=== PATIENT | female | born 1950 | race Caucasian/White ===

== ENCOUNTER 2018-02-04 18:28 | Inpatient (IN) | payer MEDICARE ==
[~2018-02-04] VITALS: Ht 154.9 cm; Wt 85.2 kg
[2018-02-04] MEDS ORDERED: SODIUM CHLORIDE 0.9% 1,000 ML IV ONE (18:51)
[2018-02-04] MEDS ORDERED: HYDROmorphone 1 MG/ML, 1ML IV PRN (19:00)
[2018-02-04] MEDS ORDERED: ONDANSETRON ODT 4 MG PO ONE (19:00)
[2018-02-04] MEDS ORDERED: SODIUM CHLORIDE FLUSH 10ML SYR IVF ONE ×2 (19:00→22:00)
[2018-02-04 19:40] LABS: INTERNATIONAL NORMALIZED RATIO 1.12 (0.93-1.1); PROTHROMBIN TIME 11.6 Seconds (9.6-11.5)
[2018-02-04 19:41] LABS: ALBUMIN 2.4 g/dL (3.4-5.0); ANION GAP 7 mmol/L (5-15); CALCIUM 9.6 mg/dL (8.5-10.1); CHLORIDE 106 mmol/L (98-107)
[2018-02-04 19:47] LABS: ALANINE AMINOTRANSFERASE 24 U/L (12-78); ALKALINE PHOSPHATASE 113 U/L (45-117); CREATININE 0.59 mg/dL (0.55-1.02); TOTAL PROTEIN 6.6 g/dL (6.4-8.2); TROPONIN I < 0.015 ng/mL (0.000-0.045)
[2018-02-04 19:49] LABS: BILIRUBIN,TOTAL 2.9 mg/dL (0.2-1.0)
[2018-02-04] MEDS ORDERED: OMNIPAQUE 350 MG/ML, 100ML BOTTLE ONE (20:37)
[2018-02-04] MEDS ORDERED: CEFTRIAXONE PMX 1GM/50ML 50 ML IVPB ONE (21:00)
[2018-02-04] MEDS ORDERED: AZITHROMYCIN 500 MG in SODIUM CHLORIDE 0.9% 250 ML IVPB ONE (21:00)
[2018-02-04] MEDS ORDERED: CEFTRIAXONE PMX 1GM/50ML 50 ML ONE (21:14)
[2018-02-04] MEDS ORDERED: HYDROmorphone 2 MG/ML, 1ML ONE (21:38)
[2018-02-04 21:53] LABS: MEAN CORPUSCULAR HEMOGLOBIN 27.5 pg (27.0-34.8); MEAN CORPUSCULAR HGB CONC 33.4 g/dL (32.4-35.8); MEAN CORPUSCULAR VOLUME 82.2 fL (80-100); MEAN PLATELET VOLUME 7.7 fL (7.4-10.4); PLATELET COUNT 60 x10^3/uL (130-400); RED BLOOD COUNT 3.37 x10^6/uL (3.82-5.3); RED CELL DISTRIBUTION WIDTH 18.3 % (9.6-15.2)
[2018-02-04 21:55] LABS: MD YES
[2018-02-04 21:58] LABS: CULTURE INDICATED? YES; MICROSCOPIC INDICATED
[2018-02-04] MEDS ORDERED: PIPERACILLIN/TAZO/PMX 3.375GM 50 ML IV ONE (22:00)
[2018-02-04] MEDS ORDERED: SODIUM CHLORIDE 0.9% 1,000ML IVBOLUS ONE ×2 (22:00→22:30)
[2018-02-04 22:04] LABS: SEGS% (MANUAL) 24 % (42-75)
[2018-02-04 22:05] LABS: LYMPH#(MANUAL) 0.22 x10^3/uL (1-3.4); LYMPHS% (MANUAL) 72 % (22-44); MONOS#(MANUAL) 0.01 x10^3/uL (0.3-2.7); MONOS% (MANUAL) 4 % (2-9); SEG#(MANUAL) 0.08 x10^3/uL (1.8-6.8)
[2018-02-04 22:07] LABS: <PLATELET ESTIMATE> DECREASED; HYPOCHROMIA 1+; OVALOCYTES 1+
[2018-02-04 22:08] LABS: ANISOCYTOSIS 1+; SMALL PLATELETS 1+
[2018-02-04] MEDS ORDERED: POTA20TA89 PO (22:22)
[2018-02-04] MEDS ORDERED: MORP-52 PO (22:22)
[2018-02-04] MEDS ORDERED: OXYC10TA6 PO (22:22)
[2018-02-04] MEDS ORDERED: LACT10SO28 PO (22:22)
[2018-02-04] MEDS ORDERED: LEVE100020 PO (22:22)
[2018-02-04] MEDS ORDERED: PIPERACILLIN/TAZO/PMX 3.375GM 50 ML ONE (23:01)
[2018-02-04] MEDS ORDERED: NS + 20MEQ KCL 1,000 ML IV SCH (23:23)
[2018-02-04] MEDS ORDERED: VANCOMYCIN PER PHARMACY MC PRN (23:30)
[2018-02-04] MEDS ORDERED: ACETAMINOPHEN 325 MG TABLET PO PRN (23:30)
[2018-02-04] MEDS: FAMOTIDINE 20 MG TABLET PO SCH (23:30)
[2018-02-04] MEDS ORDERED: POLYETHYLENE GLYCOL 17 GM PACKET PO PRN (23:30)
[2018-02-04] MEDS ORDERED: ONDANSETRON 2MG/ML, 2ML IVPush PRN (23:30)
[2018-02-04] MEDS ORDERED: OXYcodone IR 5MG TABLET PO PRN (23:30)
[2018-02-04] MEDS ORDERED: DOCUSATE 100 MG CAPSULE PO PRN (23:30)
[2018-02-04 23:44] VITALS: BP 164/78
[2018-02-04] MEDS ORDERED: PHARMACOKINETIC MONITORING MC PRN (23:45)
[2018-02-04] MEDS ORDERED: PHARMACOKINETIC CONSULTATION MC ONE (23:45)
[2018-02-05] MEDS: PIPERACILLIN/TAZO/PMX 3.375GM 50 ML IV SCH ×4 (00:33→18:36)
[2018-02-05] MEDS: VANCOMYCIN 1,200 MG in SODIUM CHLORIDE 0.9% 250 ML IV SCH (01:55)
[2018-02-05 01:57] VITALS: BP 126/64
[2018-02-05] MEDS: HYDROmorphone 2 MG/ML, 1ML IVPush PRN ×5 (03:51→23:16)
[2018-02-05 03:53] VITALS: BP 126/65
[2018-02-05 06:09] LABS: ALANINE AMINOTRANSFERASE 24 U/L (12-78); ALBUMIN 1.9 g/dL (3.4-5.0); ANION GAP 10 mmol/L (5-15); CALCIUM 8.3 mg/dL (8.5-10.1); CHLORIDE 113 mmol/L (98-107); CREATININE 0.69 mg/dL (0.55-1.02)
[2018-02-05 06:11] LABS: ALKALINE PHOSPHATASE 101 U/L (45-117); TOTAL PROTEIN 5.4 g/dL (6.4-8.2)
[2018-02-05 06:12] LABS: MEAN CORPUSCULAR HEMOGLOBIN 28.5 pg (27.0-34.8); MEAN CORPUSCULAR HGB CONC 34.6 g/dL (32.4-35.8); MEAN CORPUSCULAR VOLUME 82.4 fL (80-100); RED BLOOD COUNT 3.25 x10^6/uL (3.82-5.3); RED CELL DISTRIBUTION WIDTH 18.8 % (9.6-15.2)
[2018-02-05 06:54] LABS: MD YES; MEAN PLATELET VOLUME 8.3 fL (7.4-10.4); PLATELET COUNT 53 x10^3/uL (130-400)
[2018-02-05 07:11] LABS: NRBC % (MANUAL) 4 % (0-1); SEG#(MANUAL) 0.08 x10^3/uL (1.8-6.8); SEGS% (MANUAL) 20 % (42-75)
[2018-02-05 07:12] LABS: LYMPH#(MANUAL) 0.25 x10^3/uL (1-3.4); LYMPHS% (MANUAL) 62 % (22-44); MONOS#(MANUAL) 0.07 x10^3/uL (0.3-2.7); MONOS% (MANUAL) 18 % (2-9)
[2018-02-05 07:14] LABS: <PLATELET ESTIMATE> DECREASED; ANISOCYTOSIS 1+
[2018-02-05 07:15] LABS: <PLT MORPHOLOGY> NORMAL PLT MORPH
[2018-02-05 08:06] VITALS: BP 136/72
[2018-02-05] MEDS ORDERED: LACTULOSE 10 GM/15 ML UDC PO SCH (09:00)
[2018-02-05] MEDS: FAMOTIDINE 20 MG TABLET PO SCH ×2 (09:00→20:09)
[2018-02-05] MEDS: LEVETIRACETAM 500 MG TABLET PO SCH ×2 (09:00→20:09)
[2018-02-05] MEDS: D5%-0.9% NACL+KCL 20MEQ 1,000 ML IV SCH (13:27)
[2018-02-05 14:15] VITALS: BP 121/57
[2018-02-05 20:00] VITALS: BP 132/67
[2018-02-05] MEDS: maalox/diphenh/lido/sucralfate 5 ML PO PRN (20:29)
[2018-02-06] MEDS: D5%-0.9% NACL+KCL 20MEQ 1,000 ML IV SCH (00:26)
[2018-02-06] MEDS: PIPERACILLIN/TAZO/PMX 3.375GM 50 ML IV SCH ×3 (00:26→12:13)
[2018-02-06 02:33] VITALS: BP 147/68
[2018-02-06] MEDS: HYDROmorphone 2 MG/ML, 1ML IVPush PRN ×6 (04:20→22:10)
[2018-02-06] MEDS ORDERED: MAGNESIUM SULFATE PMX 2GM/50ML 50 ML IV ONE (07:00)
[2018-02-06 08:30] VITALS: BP 125/53
[2018-02-06] MEDS: NYSTATIN 500,000 UNITS/5 ML UDC PO SCH ×4 (08:30→22:55)
[2018-02-06] MEDS: FAMOTIDINE 20 MG TABLET PO SCH (08:30)
[2018-02-06] MEDS: MAGNESIUM CHLORIDE 64 MG TABLET.DR PO SCH ×2 (08:30→22:55)
[2018-02-06 08:33] LABS: ANION GAP 9 mmol/L (5-15); CHLORIDE 114 mmol/L (98-107); CREATININE 0.57 mg/dL (0.55-1.02)
[2018-02-06 09:11] LABS: MEAN CORPUSCULAR HEMOGLOBIN 27.9 pg (27.0-34.8); MEAN CORPUSCULAR HGB CONC 33.4 g/dL (32.4-35.8); MEAN CORPUSCULAR VOLUME 83.5 fL (80-100); MEAN PLATELET VOLUME 8.8 fL (7.4-10.4); PLATELET COUNT 61 x10^3/uL (130-400); RED CELL DISTRIBUTION WIDTH 19.3 % (9.6-15.2)
[2018-02-06 09:13] LABS: MD YES
[2018-02-06 10:06] LABS: BASOPHILS % (AUTO) 0 % (0-1); EOSINOPHILS # (AUTO) 0.01 x10^3/uL (0-0.4); EOSINOPHILS % (AUTO) 1 % (1-7); LYMPHOCYTES # (AUTO) 0.25 x10^3/uL (1-3.4); LYMPHOCYTES % (AUTO) 68 % (22-44); MONOCYTES # (AUTO) 0.09 x10^3/uL (0.2-0.8); MONOCYTES % (AUTO) 23 % (2-9); NEUTROPHILS # (AUTO) 0.03 x10^3/uL (1.8-6.8); NEUTROPHILS % (AUTO) 7 % (42-75)
[2018-02-06] MEDS: LACTULOSE 10 GM/15 ML UDC PO SCH ×4 (12:08→22:56)
[2018-02-06] MEDS: LEVETIRACETAM 500 MG TABLET PO SCH (12:14)
[2018-02-06] MEDS: VANCOMYCIN 1,200 MG in SODIUM CHLORIDE 0.9% 250 ML IV SCH (12:57)
[2018-02-06] MEDS ORDERED: LACTULOSE 3.3 GM/5 ML ORAL.SOL RC ONE (13:00)
[2018-02-06 14:24] VITALS: BP 133/74
[2018-02-06] MEDS: LEVETIRACETAM 1,000 MG in SODIUM CHLORIDE 0.9% 100 ML IV SCH (15:07)
[2018-02-06] MEDS: D5%-0.9% NACL 1,000 ML IV SCH (15:17)
[2018-02-06] MEDS: maalox/diphenh/lido/sucralfate 5 ML PO PRN (15:20)
[2018-02-06] MEDS: MEROPENEM 2 GM in SODIUM CHLORIDE 0.9% 100 ML IV SCH ×2 (15:26→23:45)
[2018-02-06 18:55] VITALS: BP 113/66
[2018-02-06] MEDS ORDERED: TBO-FILGRASTIM 480 MCG/0.8 ML SQ ONE ×2 (19:30→23:45)
[2018-02-06] MEDS ORDERED: maalox/diphenh/lido/sucralfate 5 ML PO PRN (19:30)
[2018-02-06] MEDS ORDERED: LEVETIRACETAM 1,000 MG in SODIUM CHLORIDE 0.9% 100 ML IV SCH (21:00)
[2018-02-06] MEDS: FAMOTIDINE 20 MG/2 ML IVPush SCH (22:56)
[2018-02-07 00:35] VITALS: BP 145/71
[2018-02-07] MEDS: HYDROmorphone 2 MG/ML, 1ML IVPush PRN ×7 (01:33→23:45)
[2018-02-07] MEDS: LEVETIRACETAM 1,000 MG in SODIUM CHLORIDE 0.9% 100 ML IV SCH ×2 (03:28→17:28)
[2018-02-07 05:24] LABS: CHLORIDE 114 mmol/L (98-107)
[2018-02-07 05:33] LABS: MEAN CORPUSCULAR HEMOGLOBIN 28.1 pg (27.0-34.8); MEAN CORPUSCULAR HGB CONC 33.6 g/dL (32.4-35.8); MEAN CORPUSCULAR VOLUME 83.8 fL (80-100); MEAN PLATELET VOLUME 8.4 fL (7.4-10.4); PLATELET COUNT 67 x10^3/uL (130-400); RED BLOOD COUNT 2.77 x10^6/uL (3.82-5.3); RED CELL DISTRIBUTION WIDTH 18.5 % (9.6-15.2)
[2018-02-07 05:59] LABS: ALANINE AMINOTRANSFERASE 36 U/L (12-78); ALBUMIN 1.6 g/dL (3.4-5.0); ALKALINE PHOSPHATASE 112 U/L (45-117); ANION GAP 9 mmol/L (5-15); BILIRUBIN,TOTAL 1.8 mg/dL (0.2-1.0); CALCIUM 8.2 mg/dL (8.5-10.1); CREATININE 0.49 mg/dL (0.55-1.02)
[2018-02-07 06:22] LABS: MD YES
[2018-02-07] MEDS: MEROPENEM 2 GM in SODIUM CHLORIDE 0.9% 100 ML IV SCH (06:22)
[2018-02-07] MEDS: D5%-0.9% NACL 1,000 ML IV SCH (06:23)
[2018-02-07] MEDS: NYSTATIN 500,000 UNITS/5 ML UDC PO SCH ×4 (06:23→22:16)
[2018-02-07 07:08] LABS: BAND#(MANUAL) 0.03 x10^3/uL; BANDS%(MANUAL) 4 % (0-7); LYMPH#(MANUAL) 0.43 x10^3/uL (1-3.4); LYMPHS% (MANUAL) 54 % (22-44); MONOS% (MANUAL) 38 % (2-9); REACTIVE LYMPHS # (MANUAL) 0.03 x10^3/uL (0-0); REACTIVE LYMPHS % (MANUAL) 4 % (0-0)
[2018-02-07 07:09] LABS: <PLT MORPHOLOGY> NORMAL PLT MORPH; ANISOCYTOSIS 1+
[2018-02-07 08:05] VITALS: BP 124/63
[2018-02-07] MEDS: MAGNESIUM CHLORIDE 64 MG TABLET.DR PO SCH ×2 (09:19→20:00)
[2018-02-07] MEDS: FAMOTIDINE 20 MG/2 ML IVPush SCH ×2 (09:34→22:16)
[2018-02-07] MEDS: LACTULOSE 10 GM/15 ML UDC PO SCH ×3 (09:45→22:16)
[2018-02-07] MEDS ORDERED: FENTANYL REMOVE PATCH NOTE XX SCH (10:30)
[2018-02-07] MEDS ORDERED: POTASSIUM CHLORIDE 40 MEQ in SODIUM CHLORIDE 0.9% 500 ML IV ONE (10:30)
[2018-02-07] MEDS ORDERED: [UNRECOGNIZED DRUG - REMARK] XX PRN (11:00)
[2018-02-07] MEDS: CEFTAZIDIME 2,000 MG in SODIUM CHLORIDE 0.9% 50 ML IV SCH ×2 (11:50→20:27)
[2018-02-07] MEDS: D5%-0.45NACL+KCL 20MEQ 1,000 ML IV SCH (11:50)
[2018-02-07] MEDS: FENTANYL 25 MCG PATCH TD SCH (11:53)
[2018-02-07 13:50] VITALS: BP 144/67
[2018-02-07] MEDS ORDERED: TBO-FILGRASTIM 480 MCG/0.8 ML SQ SCH (18:00)
[2018-02-07 20:14] VITALS: BP 150/71
[2018-02-08] MEDS: VANCOMYCIN 1,200 MG in SODIUM CHLORIDE 0.9% 250 ML IV SCH (00:34)
[2018-02-08 03:55] VITALS: BP 148/73
[2018-02-08] MEDS: CEFTAZIDIME 2,000 MG in SODIUM CHLORIDE 0.9% 50 ML IV SCH ×4 (04:00→22:39)
[2018-02-08] MEDS: D5%-0.45NACL+KCL 20MEQ 1,000 ML IV SCH (05:00)
[2018-02-08 05:15] LABS: ANION GAP 8 mmol/L (5-15); CALCIUM 8.1 mg/dL (8.5-10.1); CHLORIDE 116 mmol/L (98-107)
[2018-02-08 05:16] LABS: CREATININE 0.54 mg/dL (0.55-1.02)
[2018-02-08] MEDS: NYSTATIN 500,000 UNITS/5 ML UDC PO SCH ×4 (05:52→20:41)
[2018-02-08] MEDS: HYDROmorphone 2 MG/ML, 1ML IVPush PRN ×3 (05:52→22:49)
[2018-02-08] MEDS: LEVETIRACETAM 1,000 MG in SODIUM CHLORIDE 0.9% 100 ML IV SCH ×2 (05:52→20:29)
[2018-02-08 06:24] LABS: MD YES
[2018-02-08 06:25] LABS: MEAN CORPUSCULAR HEMOGLOBIN 27.4 pg (27.0-34.8); MEAN CORPUSCULAR HGB CONC 32.5 g/dL (32.4-35.8); MEAN CORPUSCULAR VOLUME 84.4 fL (80-100); MEAN PLATELET VOLUME 8.3 fL (7.4-10.4); PLATELET COUNT 61 x10^3/uL (130-400); RED BLOOD COUNT 2.83 x10^6/uL (3.82-5.3); RED CELL DISTRIBUTION WIDTH 18.8 % (9.6-15.2)
[2018-02-08 06:31] LABS: BAND#(MANUAL) 0.55 x10^3/uL; BANDS%(MANUAL) 14 % (0-7); EOS#(MANUAL) 0.04 x10^3/uL (0.0-0.4); EOS% (MANUAL) 1 % (1-7); LYMPH#(MANUAL) 0.55 x10^3/uL (1-3.4); LYMPHS% (MANUAL) 14 % (22-44); METAMYELOCYTES# (MANUAL) 0.23 x10^3/uL (0-0); METAMYELOCYTES% (MANUAL) 6 % (0-1); MONOS#(MANUAL) 0.78 x10^3/uL (0.3-2.7); MONOS% (MANUAL) 20 % (2-9); MYELOCYTES# (MANUAL) 0.31 x10^3/uL (0-0); MYELOCYTES% (MANUAL) 8 % (0-0); NRBC % (MANUAL) 3 % (0-1); PROGRANULOCYTES# (MANUAL) 0.04 x10^3/uL (0-0); PROGRANULOCYTES% (MANUAL) 1 % (0-0); SEGS% (MANUAL) 36 % (42-75)
[2018-02-08 06:37] LABS: <PLATELET ESTIMATE> DECREASED; ANISOCYTOSIS 1+
[2018-02-08 06:38] LABS: <PLT MORPHOLOGY> NORMAL PLT MORPH; TOXIC GRAN 1+
[2018-02-08 06:40] LABS: POLYCHROMASIA 1+
[2018-02-08 06:47] LABS: <PLATELET ESTIMATE> DECREASED
[2018-02-08 07:17] VITALS: BP 103/61
[2018-02-08] MEDS ORDERED: POTASSIUM PHOSPHATE 44 MEQ in SODIUM CHLORIDE 0.9% 500 ML IV ONE (08:30)
[2018-02-08] MEDS: LACTULOSE 10 GM/15 ML UDC PO SCH ×3 (09:00→20:39)
[2018-02-08] MEDS: MAGNESIUM CHLORIDE 64 MG TABLET.DR PO SCH ×2 (10:58→20:41)
[2018-02-08] MEDS: FAMOTIDINE 20 MG/2 ML IVPush SCH ×2 (11:16→20:39)
[2018-02-08] MEDS ORDERED: LIDOCAINE-MPF 2%, 2ML ONE ×2 (11:54→13:05)
[2018-02-08] MEDS ORDERED: MIDAZOLAM 1 MG/ML, 5ML ONE (12:11)
[2018-02-08] MEDS ORDERED: FLUMAZENIL 0.1 MG/1 ML, 5ML ONE (12:11)
[2018-02-08] MEDS ORDERED: NALOXONE 1 MG/ML, 2ML ONE (12:11)
[2018-02-08] MEDS ORDERED: FENTANYL PF 100 MCG/2ML ONE (12:11)
[2018-02-08] MEDS ORDERED: PHARMACOKINETIC MONITORING MC PRN (12:30)
[2018-02-08] MEDS ORDERED: VANCOMYCIN PER PHARMACY MC PRN (12:30)
[2018-02-08 14:09] VITALS: BP 114/62
[2018-02-08 18:56] VITALS: BP 115/67
[2018-02-09 00:09] VITALS: BP 113/68
[2018-02-09] MEDS: HYDROmorphone 2 MG/ML, 1ML IVPush PRN ×6 (02:08→23:45)
[2018-02-09 04:01] VITALS: BP 134/66
[2018-02-09 04:53] LABS: ALBUMIN 1.5 g/dL (3.4-5.0); ANION GAP 11 mmol/L (5-15); CALCIUM 7.7 mg/dL (8.5-10.1); CHLORIDE 115 mmol/L (98-107)
[2018-02-09 04:56] LABS: ALANINE AMINOTRANSFERASE 49 U/L (12-78); ALKALINE PHOSPHATASE 169 U/L (45-117); BILIRUBIN,TOTAL 1.2 mg/dL (0.2-1.0); CREATININE 0.61 mg/dL (0.55-1.02); TOTAL PROTEIN 4.7 g/dL (6.4-8.2)
[2018-02-09 05:10] LABS: MEAN CORPUSCULAR HEMOGLOBIN 26.9 pg (27.0-34.8); MEAN CORPUSCULAR HGB CONC 32.1 g/dL (32.4-35.8); MEAN CORPUSCULAR VOLUME 83.7 fL (80-100); MEAN PLATELET VOLUME 7.8 fL (7.4-10.4); PLATELET COUNT 87 x10^3/uL (130-400); RED BLOOD COUNT 3.08 x10^6/uL (3.82-5.3); RED CELL DISTRIBUTION WIDTH 19.4 % (9.6-15.2)
[2018-02-09 05:47] LABS: MD YES
[2018-02-09 05:50] LABS: BAND#(MANUAL) 2.24 x10^3/uL; BANDS%(MANUAL) 15 % (0-7); LYMPH#(MANUAL) 0.45 x10^3/uL (1-3.4); LYMPHS% (MANUAL) 3 % (22-44); METAMYELOCYTES% (MANUAL) 2 % (0-1); MONOS#(MANUAL) 0.89 x10^3/uL (0.3-2.7); MONOS% (MANUAL) 6 % (2-9); MYELOCYTES% (MANUAL) 2 % (0-0); NRBC % (MANUAL) 2 % (0-1); SEG#(MANUAL) 10.73 x10^3/uL (1.8-6.8); SEGS% (MANUAL) 72 % (42-75)
[2018-02-09 05:51] LABS: ANISOCYTOSIS 1+; HYPOCHROMIA 1+; POLYCHROMASIA 1+
[2018-02-09 05:52] LABS: <PLATELET ESTIMATE> DECREASED; <PLT MORPHOLOGY> NORMAL PLT MORPH; TOXIC GRAN 1+
[2018-02-09] MEDS: NYSTATIN 500,000 UNITS/5 ML UDC PO SCH ×4 (06:04→20:10)
[2018-02-09] MEDS: CEFTAZIDIME 2,000 MG in SODIUM CHLORIDE 0.9% 50 ML IV SCH ×3 (06:04→23:45)
[2018-02-09 07:26] VITALS: BP 132/67
[2018-02-09] MEDS: MAGNESIUM CHLORIDE 64 MG TABLET.DR PO SCH ×2 (09:00→20:11)
[2018-02-09] MEDS: LACTULOSE 10 GM/15 ML UDC PO SCH ×3 (09:00→20:11)
[2018-02-09] MEDS: LEVETIRACETAM 1,000 MG in SODIUM CHLORIDE 0.9% 100 ML IV SCH ×2 (09:56→23:04)
[2018-02-09] MEDS: FAMOTIDINE 20 MG/2 ML IVPush SCH ×2 (09:56→20:10)
[2018-02-09] MEDS: DAPTOMYCIN 500 MG in SODIUM CHLORIDE 0.9% 100 ML IVPB SCH (11:30)
[2018-02-09 13:41] VITALS: BP 125/66
[2018-02-09 20:12] VITALS: BP 119/64
[2018-02-10 01:12] VITALS: BP 111/58
[2018-02-10] MEDS: HYDROmorphone 2 MG/ML, 1ML IVPush PRN ×3 (03:04→11:12)
[2018-02-10] MEDS: NYSTATIN 500,000 UNITS/5 ML UDC PO SCH (06:07)
[2018-02-10 06:58] VITALS: BP 121/69
[2018-02-10] MEDS: LEVETIRACETAM 1,000 MG in SODIUM CHLORIDE 0.9% 100 ML IV SCH (08:00)
[2018-02-10] MEDS: LACTULOSE 10 GM/15 ML UDC PO SCH (09:17)
[2018-02-10] MEDS: FAMOTIDINE 20 MG/2 ML IVPush SCH (09:17)
[2018-02-10] MEDS: CEFTAZIDIME 2,000 MG in SODIUM CHLORIDE 0.9% 50 ML IV SCH (09:17)
[2018-02-10] MEDS: MAGNESIUM CHLORIDE 64 MG TABLET.DR PO SCH (09:24)
[2018-02-10] MEDS: DAPTOMYCIN 500 MG in SODIUM CHLORIDE 0.9% 100 ML IVPB SCH (09:30)
[2018-02-10] MEDS: FENTANYL 25 MCG PATCH TD SCH (11:55)
== END 2018-02-10 15:04 | disposition hospice, home (50) | DRG 871 ==
LOC: ED 21:00 → EDIP 22:33 → 4EST 23:24 → 3NW 02-08 13:42
PROVIDERS: ADMIT Family Medicine; ATTEND Family Medicine
PROC: 0JPT3WZ Removal of Totally Implantable Vascular Access Device from Trunk Subcutaneous Tissue and Fascia, Percutaneous Approach (ICD-10-PCS; principal; 2018-02-08)
DX: A41.52 Sepsis due to Pseudomonas (principal); E43 Unspecified severe protein-calorie malnutrition; G93.41 Metabolic encephalopathy; J15.9 Unspecified bacterial pneumonia; D61.818 Other pancytopenia; N17.9 Acute kidney failure, unspecified; C78.7 Secondary malignant neoplasm of liver and intrahepatic bile duct; C78.02 Secondary malignant neoplasm of left lung; C78.01 Secondary malignant neoplasm of right lung; D63.0 Anemia in neoplastic disease; D70.3 Neutropenia due to infection; E83.39 Other disorders of phosphorus metabolism; K72.90 Hepatic failure, unspecified without coma; K12.30 Oral mucositis (ulcerative), unspecified; K70.30 Alcoholic cirrhosis of liver without ascites; R13.10 Dysphagia, unspecified; R50.81 Fever presenting with conditions classified elsewhere; R65.20 Severe sepsis without septic shock; Z66 Do not resuscitate; B95.2 Enterococcus as the cause of diseases classified elsewhere; Z16.21 Resistance to vancomycin; R59.0 Localized enlarged lymph nodes; C76.8 Malignant neoplasm of other specified ill-defined sites; Z51.5 Encounter for palliative care; Z88.5 Allergy status to narcotic agent; Z88.8 Allergy status to other drugs, medicaments and biological substances; Z87.891 Personal history of nicotine dependence; Z68.35 Body mass index [BMI] 35.0-35.9, adult; Z92.21 Personal history of antineoplastic chemotherapy; Z79.899 Other long term (current) drug therapy; Z71.89 Other specified counseling
CPT/HCPCS: 36415; 36590; 71045; 71275; 74018; 76700; 77001; 80048; 80053; 81001; 82140; 82550; 83605; 83735; 83880; 84100; 84484; 85025; 85610; 85730; 87040; 87077; 87086; 87186; 93005; 93306; 96361; 96365; 96368; 96375; 99156; 99157; G0378; J0456; J0696; J0713; J0878; J1170; J1953; J2185; J2250; J2543; J3010; J3370; J3480; J3490; J7042; Q9967; J1447; J2310; J3475; J7030; J7040; J7050; S0028